=== PATIENT | female | born 1940 | race Caucasian/White ===

== ENCOUNTER 2019-01-25 22:41 | Emergency (ER) | payer MEDICARE, OTHER, SELFPAY ==
--- NOTE | 2019-01-25 22:43 | ED_ITS ---
HPI - General Adult General Chief complaint: Wound/Laceration Stated complaint: Leg injury Time Seen by Provider: 01/25/19 22:43 Source: patient Mode of arrival: EMS Limitations: no limitations History of Present Illness HPI narrative: 78-year-old female here for evaluation for cut to her left lower extremity. 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 States that her last tetanus was in the past year. Has a cut to her left lower extremity however no other injuries from the event. Related Data Allergies Allergy/AdvReac Type Severity Reaction Status Date / Time Penicillins Allergy Verified 01/25/19 22:50 Review of Systems Constitutional Denies frequent falls ENT Ears, Nose, Mouth, and Throat: Denies vertigo and Denies dizziness Cardiovascular Denies chest pain and Denies dyspnea Respiratory Denies dyspnea Musculoskeletal Denies myalgias and Denies arthralgias Integumentary/Breasts Comments: Large cut to the front of the left lower extremity Neurologic Denies vertigo, Denies dizziness and Denies frequent falls Hematologic/Lymphatic Denies easy bleeding and Denies easy bruising PFSH Surgical History No pertinent past surgical history (Acute) Social History Smoking Status: Unknown if ever smoked Social History Smoking Status: Unknown if ever smoked Exam Initial Vital Signs Initial Vital Signs: Vital Signs Temperature 98.9 F 01/25/19 22:45 Pulse Rate 78 01/25/19 22:45 Respiratory Rate 14 01/25/19 22:45 Blood Pressure 184/94 H 01/25/19 22:45 Pulse Oximetry 100 01/25/19 22:45 Const General: cooperative, comfortable, well developed, well groomed and No acute distress Orientation: alert and awake [facility] Head: normal to inspection and normocephalic Resp Effort & Inspection: normal respiratory effort Cardio Rate: regular rate Pulses: dorsalis pedis present on the left Skin Other: Patient with a large ?V? shaped wound to the anterior aspect of the left lower extremity mid tibial region. No active bleeding. Neuro General: alert, awake and oriented x3 Extrem General: normal to inspection, capillary refill normal and No edema Left lower extremity: full ROM and normal capillary refill; no edema Psych Appearance: grossly normal and well kempt Procedures Laceration Repair Laceration 1: Site: lower extremity Side (If applicable): left Size (cm): 20 Description: irregular Depth: involves muscle layer Local Anesthetic: lidocaine 1% and with epi Amount of anesthesia used (mL): 12 Pre-repair: wound explored and irrigated extensively Skin layer closed with: nylon Size (cm): 3-0 Number of sutures: 27 Technique: simple, interrupted Muscle layer closed with: vicryl Size: 3-0 Number of sutures: 1 Technique: running Course Orders Ordered: Discontinued Medications Acetaminophen/Codeine Phosphate (Tylenol #3 Prepack) 1 bottle MISC SEEINSTR ONE Stop: 01/25/19 23:57 Last Admin: 01/26/19 00:05 Dose: 1 bottle Vital Signs - 8 hr 01/25/19 22:45 01/26/19 00:05 Temperature 98.9 F Pulse Rate 78 82 Respiratory Rate 14 Blood Pressure 184/94 H Blood Pressure [Right Arm] 149/71 H Pulse Oximetry 100 98 Medical Decision Making MDM Narrative Medical decision making narrative: No other injuries reported from the event except for the laceration to the left lower extremity which was closed as described above. Patient is up-to-date on tetanus. The point of the ?V? was very thin skin. Steri-Strips were placed over the top. Patient was given care instructions and return precautions. She expressed understanding and agreement with plan. Discharge Plan Departure Patient Disposition: Home Clinical Impression: Laceration Discharge Date/Time: 01/26/19 00:20 Interventions: ED Discharge Assessment Last Done: 01/26/19 00:19 Instructions: How to Care for a Laceration After Repair, DI for Laceration Repair Activity Restrictions/Additional Instructions: You can shower like normal. Keep your leg elevated and iced when you are sitting however you can walk like normal. Expect some oozing from the wound however return to the emergency department if bleeding occurs. Take the medication as directed. The stitches do need to be removed in 7-10 days. Retur n to the emergency department for any new or worsening symptoms
[2019-01-25 22:45] VITALS: BP 184/94; PULSE 78; RESP 14; TEMP 37.2; O2SAT 100; BMI 19.1
[2019-01-26 00:05] VITALS: BP 149/71; PULSE 82; O2SAT 98
[2019-01-26] MEDS: CODEINE/APAP 30/300 PREPACK 1 BOTTLE MISC (00:05)
--- NOTE | 2019-01-26 00:19 | PC.NURSE ---
Pt sutured,steri strips,telfa,elke and then wrapped with an branden wrap
== END 2019-01-26 00:20 | disposition home or self-care (01) ==
PROVIDERS: Emergency Provider Emergency Medicine
DX: S81.812A Laceration without foreign body, left lower leg, initial encounter (principal)
CPT/HCPCS: 12035; 99283; 99284